=== PATIENT | male | born 1970 ===

== ENCOUNTER → 2021-02-04 | Outpatient (CLI) | payer OTHER ==
--- NOTE | 2021-02-04 11:56 | NM ---
EXAMINATION TYPE: NM stress cardiolite complete DATE OF EXAM: 02/04/2021 COMPARISON: NONE HISTORY: Hypertension TECHNIQUE: After the intravenous administration of 9.7 mCi Tc 99m Sestamibi - Cardiolite resting SPE CT images acquired 87 minutes post injection. At peak stress 25.2 mCi Tc 99m Sestamibi - Stress images obtained 35 minutes post injection The patient was stressed on a Jose Angel protocol on the treadmill . Patient reached 96% of predicted maxi mum heart rate. FINDINGS: There is a large defect along the anterior wall within the mid to distal portion extending to the car diac apex. This appears to be largely reversible on the resting images. Findings can be compatible st ress-induced ischemic change. Wall motion is normal Ejection fraction is calculated to be 55 %. IMPRESSION: 1. Stress-induced ischemic change within the mid to distal anterior wall. A [place] level critical message alert has been initiated for Marisel Murillo DO via the [employer] Critical Results System on 02/04/2021 11:53 AM. This message alert has been sent to Marisel Murillo DO via the preferences provided by the clinician for the receipt of Radiology Critical Findings. Amanda e ID [id number].
--- NOTE | 2021-02-05 18:08 | P.STRESS ---
- Stress Test Note Stress Test Results/Findings: Exam Performed: NM stress cardiolite complete Exam Date: 02/04/21 Reason for Exam: CP, HTN Height: 5 ft 7 in Weight: 126 kg Protocol: CARDIOLITE STRESS Stage: 3 Duration of Exercise: 9:00 Resting Heart Rate: 74 Resting Blood Pressure: 157/83 Maximum Achieved Heart Rate: 164 Maximum Achieved Blood Pressure: 208/97 85% PMHR: 145 100% PMHR: 171 METS: 10.5 Technologist Comment: Stress Test Results/Findings: Patient underwent exercise stress Cardiolite with a Jose Angel protocol treadmill stress test. Patient exercised into Stage 3 for a total of 9 minutes reaching a total of and 10.5 METS. Patient's maximum heart rate was 164 which represented 96 % age-predicted maximum heart rate. Stress EKG findings: At baseline patient's EKG showed normal sinus rhythm, normal axis, no significant ST or T-wave abnormalities. At peak exercise, EKG showed no change from baseline, occasional PVCs. Conclusions: 1. Normal EKG response to exercise without evidence of inducible ischemia. 2. Fair exercise capacity. 3. Nuclear portion reported separately
== END | disposition home or self-care (01) ==
LOC: RADNMMAIN 08:02
PROVIDERS: ATTEND Family Medicine
DX: I67.82 Cerebral ischemia (principal); I10 Essential (primary) hypertension
CPT/HCPCS: 93017; 78452; A9500